=== PATIENT | male | born 1960 | race African-American/Black ===

== ENCOUNTER → 2018-05-05 | Outpatient (CLI) | payer OTHER ==
--- NOTE | 2018-05-05 09:41 | RAD ---
EXAM: Lumbar spine, 3 views. HISTORY: Pain. COMPARISON: None. FINDINGS: Frontal, lateral and coned sacral views of the lumbar spine are obtained. There is slight sacralization of the L5 segment. There is articulation of the sacralized right L5 transverse process with the underlying sacrum and there is a rudimentary L5-S1 disc. There is degenerative endplate remodeling and anterior spurring at the mid and lower lumbar levels. There is disc space narrowing and facet arthropathy at L4-L5. IMPRESSION: 1. Multilevel degenerative change within the lumbar spine, primarily at L4-L5. 2. Transitional lumbosacral segment. Electronically signed by: Donna Mitchell MD (05/05/2018 9:37 AM) [facility]
== END | disposition home or self-care (01) ==
LOC: RAD 09:00
PROVIDERS: ATTEND Surgery
DX: M47.896 Other spondylosis, lumbar region (principal); M48.061 Spinal stenosis, lumbar region without neurogenic claudication; M12.88 Other specific arthropathies, not elsewhere classified, other specified site
CPT/HCPCS: 72100